=== PATIENT | male | born 1960 | race Hispanic/Latino ===

== ENCOUNTER 2016-11-04 17:34 | Emergency (ER) | payer MEDICARE ==
[2016-11-04] MEDS ORDERED: MOTRIN PO ONE (17:55)
[2016-11-04 20:29] VITALS: BP 114/68
--- NOTE | 2016-11-04 20:47 | Emergency Department Report ---
ED General Adult HPI - General Chief complaint: Medical Clearance Stated complaint: BIPOLAR OFF MEDS Time Seen by Provider: 11/04/16 20:42 Source: patient Mode of arrival: Ambulatory Limitations: No Limitations - History of Present Illness Initial comments: pt is a 56 y/o w/m with hx of Biplor Disorder on Hinckley 900mg po daily, Cymbalta 60 mg po daily, pt denies SI or HI, advise out of medication x 3 days , pt transient for [place], homeless, requesting medication refill. pt denies acute complaint at this time. Onset/Timin -: days(s) Radiation: non-radiation Severity scale (0 -10): 0 Consistency: intermittent Improves with: other (rx) Worsens with: none Associated Symptoms: denies other symptoms. denies: confusion, chest pain, cough, diaphoresis, fever/chills, headaches, loss of appetite, malaise, nausea/ vomiting, rash, seizure, shortness of breath, weakness Treatments Prior to Arrival: none - Related Data Previous Rx's Medication Instructions Recorded Last Taken Type DULoxetine [Cymbalta] 60 mg PO QDAY #2 capsule 11/04/16 Unknown Rx Hinckley Carbonate 300 mg PO Q8H #6 tablet 11/04/16 Unknown Rx Allergies Allergy/AdvReac Type Severity Reaction Status Date / Time No Known Allergies Allergy Unverified 11/04/16 17:46 ED Review of Systems ROS: Stated complaint: BIPOLAR OFF MEDS Other details as noted in HPI Constitutional: denies: chills, fever Eyes: denies: eye pain, eye discharge, vision change ENT: denies: ear pain, throat pain Respiratory: denies: cough, shortness of breath, wheezing Cardiovascular: denies: chest pain, palpitations Endocrine: no symptoms reported Gastrointestinal: denies: abdominal pain, nausea, diarrhea Genitourinary: denies: urgency, dysuria Musculoskeletal: denies: back pain, joint swelling, arthralgia Skin: denies: rash, lesions Neurological: denies: headache, weakness, paresthesias Psychiatric: denies: anxiety, depression, auditory hallucinations, visual hallucinations, homicidal thoughts, suicidal thoughts Hematological/Lymphatic: denies: easy bleeding, easy bruising ED Past Medical Hx - Past Medical History Previous Medical History?: Yes Hx Arthritis: Yes Hx Psychiatric Treatment: Yes (bi-polar, slight schz.) - Social History Smoking Status: Current Every Day Smoker Substance Use Type: None - Medications Home Medications: Home Medications Medication Instructions Recorded Confirmed Last Taken Type DULoxetine [Cymbalta] 60 mg PO QDAY #2 capsule 11/04/16 Unknown Rx Hinckley Carbonate 300 mg PO Q8H #6 tablet 11/04/16 Unknown Rx ED Physical Exam - General Limitations: No Limitations General appearance: alert, in no apparent distress - Head Head exam: Present: atraumatic, normocephalic - Eye Eye exam: Present: normal appearance - ENT ENT exam: Present: normal exam - Neck Neck exam: Present: normal inspection - Respiratory Respiratory exam: Present: normal lung sounds bilaterally. Absent: respiratory distress - Cardiovascular Cardiovascular Exam: Present: regular rate, normal rhythm. Absent: systolic murmur, diastolic murmur, rubs, gallop - GI/Abdominal GI/Abdominal exam: Present: soft, normal bowel sounds - Rectal Rectal exam: Present: deferred - Extremities Exam Extremities exam: Present: normal inspection - Back Exam Back exam: Present: normal inspection - Neurological Exam Neurological exam: Present: alert, oriented X3 - Psychiatric Psychiatric exam: Present: normal affect, normal mood. Absent: depressed (no psych symptoms at this time. ), anxious, manic, homicidal ideation, suicidal ideation - Skin Skin exam: Present: warm, dry, intact, normal color. Absent: rash ED Course Vital Signs 11/04/16 11/04/16 11/04/16 17:46 17:58 20:15 Temperature 98.5 F 98.5 F Pulse Rate 84 78 Respiratory 20 16 16 Rate Blood Pressure 122/78 Blood Pressure 114/68 [Right] O2 Sat by Pulse 100 Oximetry ED Medical Decision Making - Medical Decision Making pt is a 56 y/o w/m with hx of Biplor Disorder on Hinckley 900mg po daily, Cymbalta 60 mg po daily, pt denies SI or HI, advise out of medication x 3 days , pt transient for [place], homeless, requesting medication refill. pt denies acute complaint at this time. pt counseled on pysch medication refill , pt refered to [facility] at [address] [place] [address] Pt will walk in to walk in clinic tomorrow, pt given rx for 1 tab each tonight , will see psych tomorrow for pysch affiliation and refill guidance pt verbalized agreement and understanding of same. Critical care attestation.: If time is entered above; I have spent that time in minutes in the direct care of this critically ill patient, excluding procedure time. ED Disposition Clinical Impression: Medication refill Disposition: DC-01 TO HOME OR SELFCARE Is pt being admited?: No Does the pt Need Aspirin: No Condition: Good Instructions: Bipolar Disorder (ED) Additional Instructions: follow up tomorrow with [facility] tomorrow [phone] [address] [facility] [address], [facility] [id number] Prescriptions: DULoxetine [Cymbalta] 60 mg PO QDAY #2 capsule Hinckley Carbonate 300 mg PO Q8H #6 tablet Referrals: PRIMARY CARE, [Primary Care Provider] - 3-5 Days Forms: Work/School Release Form(ED) Time of Disposition: 20:58
== END 2016-11-04 21:35 | disposition home or self-care (01) ==
LOC: ED 17:34
DX: Z76.0 Encounter for issue of repeat prescription (principal); F31.9 Bipolar disorder, unspecified; F20.9 Schizophrenia, unspecified; M19.90 Unspecified osteoarthritis, unspecified site; F17.200 Nicotine dependence, unspecified, uncomplicated
CPT/HCPCS: 99282

== ENCOUNTER 2021-09-13 21:30 | Emergency (ER) | payer MEDICARE ==
[2021-09-14 03:30] VITALS: BP 140/78
== END 2021-09-14 05:25 | disposition left against medical advice (07) ==
LOC: ED 21:30
DX: M79.605 Pain in left leg (principal); Z53.21 Procedure and treatment not carried out due to patient leaving prior to being seen by health care provider